=== PATIENT | female | born 1935 | race Caucasian/White ===

== ENCOUNTER 2024-04-29 10:00 | Emergency (ER) | payer OTHER ==
--- OUTSIDE RECORDS SUMMARY | 2024-04-29 10:03 | XMS REPORT | Continuity of Care Document ---
Author Name Unknown Address [address] [place] [address] [address] [id number] [facility] thconnect Address [address] [facility] [address] [place] [address] Care Team Providers Care Cycle Liaison Name Role Phone Andrzej Darby Attending Clinician Unavailable ANNAMARIA_Anthony Attending Clinician Unavaila vladislav YIN_Evelia Attending Clinician Unavail able Andrzej Darby Admitting Clinician Unavailable ANNAMARIA_Anthony Admitting Clinician Unavaila vladislav YIN_Evelia Admitting Clinician Unavail able Payers Payer Name Policy Type Policy Number Effective Date Expirati on Date Source [place]IC[place]: [place] [id number] 2000 00:00:00 [employer] - PLAN F (MEDICARE SUPPLEMENT) [id number] 2017 00:00:00 Problems Condition Name Condition Details Condition Category Status Onset Date Resolution Date Last Treatment Date Treating Clinician Comments Source Knee joint prosthesis present Knee Joint Prosthesis Present Problem Active 03-23 00:00: 00 [facility] Pain of bilateral knee regions Pain of Bilateral Knee Regions Problem Active 03-23 00:00: 00 [facility] Osteoarthr itis of right knee joint Osteoarthr itis of Right Knee Joint Problem Active 03-23 00:00: 00 [facility] Pain of left knee joint Pain of Left Knee Joint Problem Active 2022-11 00:00: 00 [facility] 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 Problem Active 2022-11 0-26 00:00: 00 [facility] Allergies, Adverse Reactions, Alerts Allergy Name Allergy Type Status Severity Reaction(s) Onset Date Inactive Date Treating Clinician Comments Source No Known Allergie s DA Active U 6-06 00:00: 00 [facility] No Known Allergie s DA Active U 04-02 00:00: 00 [facility] No Known Allergie s DA Active U 2022-11 00:00: 00 [facility] No Known Allergie s DA Active U 2022-11 00:00: 00 [facility] Social History Smoking Status Start Date Stop Date Source Never Smoker [facility] Medications Ordered Medication Name Filled Medication Name Start Date Stop Date Current Medication? Ordering Clinician Indication Dosage Frequency Signature (SIG) Comments Components Source Hibiclens 4 % topical liquid Apply 1 application every day by topical route for 5 days. Hibiclens 4 % topical liquid Apply 1 application every day by topical route for 5 days. No 1applic ation(s ) Q1D Hibiclens 4 % topical liquid Apply 1 applicatio n every day by topical route for 5 days. [facility] ondansetron HCl 4 mg tablet TAKE 1 TABLET BY MOUTH TWICE DAILY NEEDED FOR 14 DAYS ondansetron HCl 4 mg tablet TAKE 1 TABLET BY MOUTH TWICE DAILY NEEDED FOR 14 DAYS No ondansetro n HCl 4 mg tablet TAKE 1 TABLET BY MOUTH TWICE DAILY NEEDED FOR 14 DAYS [facility] doxycycline hyclate 100 mg tablet Take 1 tablet twice a day by oral route as directed for 7 days. doxycycline hyclate 100 mg tablet Take 1 tablet twice a day by oral route as directed for 7 days. No 1 BID doxycyclin e hyclate 100 mg tablet Take 1 tablet twice a day by oral route as directed for 7 days. [facility] acetaminoph en 300 mg-codeine 30 mg tablet TAKE 1 TABLET BY MOUTH EVERY 6 HOURS NEEDED acetaminoph en 300 mg-codeine 30 mg tablet TAKE 1 TABLET BY MOUTH EVERY 6 HOURS NEEDED No acetaminop hen 300 mg-codeine 30 mg tablet TAKE 1 TABLET BY MOUTH EVERY 6 HOURS NEEDED [facility] aspirin 81 mg tablet,skyler yed release TAKE 1 TABLET BY MOUTH TWICE DAILY FOR 42 DAYS aspirin 81 mg tablet,skyler yed release TAKE 1 TABLET BY MOUTH TWICE DAILY FOR 42 DAYS No aspirin 81 mg tablet,del ayed release TAKE 1 TABLET BY MOUTH TWICE DAILY FOR 42 DAYS [facility] diclofenac sodium 75 mg tablet,skyler yed release TAKE 1 TABLET BY MOUTH TWICE DAILY AFTER FINISHING 5 DAYS OF KETOROLAC diclofenac sodium 75 mg tablet,skyler yed release TAKE 1 TABLET BY MOUTH TWICE DAILY AFTER FINISHING 5 DAYS OF KETOROLAC No diclofenac sodium 75 mg tablet,del ayed release TAKE 1 TABLET BY MOUTH TWICE DAILY AFTER FINISHING 5 DAYS OF KETOROLAC [facility] doxycycline hyclate 100 mg capsule TAKE 1 CAPSULE BY MOUTH TWICE DAILY FOR 7 DAYS doxycycline hyclate 100 mg capsule TAKE 1 CAPSULE BY MOUTH TWICE DAILY FOR 7 DAYS No doxycyclin e hyclate 100 mg capsule TAKE 1 CAPSULE BY MOUTH TWICE DAILY FOR 7 DAYS [facility] hydrocodone 5 mg-acetamin ophen 325 mg tablet TAKE 1 TABLET BY MOUTH EVERY 8 HOURS NEEDED hydrocodone 5 mg-acetamin ophen 325 mg tablet TAKE 1 TABLET BY MOUTH EVERY 8 HOURS NEEDED No hydrocodon e 5 mg-acetami nophen 325 mg tablet TAKE 1 TABLET BY MOUTH EVERY 8 HOURS NEEDED [facility] ketorolac 10 mg tablet TAKE 1 TABLET BY MOUTH EVERY 8 HOURS FOR 5 DAYS ketorolac 10 mg tablet TAKE 1 TABLET BY MOUTH EVERY 8 HOURS FOR 5 DAYS No ketorolac 10 mg tablet TAKE 1 TABLET BY MOUTH EVERY 8 HOURS FOR 5 DAYS [facility] lorazepam 0.5 mg tablet TAKE 1 TABLET BY MOUTH EVERY 6 TO 8 HOURS NEEDED lorazepam 0.5 mg tablet TAKE 1 TABLET BY MOUTH EVERY 6 TO 8 HOURS NEEDED No lorazepam 0.5 mg tablet TAKE 1 TABLET BY MOUTH EVERY 6 TO 8 HOURS NEEDED [facility] methylpredn isolone 4 mg tablets in a dose pack TAKE BY MOUTH DIRECTED ON INSIDE OF PACKAGE methylpredn isolone 4 mg tablets in a dose pack TAKE BY MOUTH DIRECTED ON INSIDE OF PACKAGE No methylpred nisolone 4 mg tablets in a dose pack TAKE BY MOUTH DIRECTED ON INSIDE OF PACKAGE [facility] mupirocin 2 % topical ointment APPLY A SMALL AMOUNT TO EACH NOSTRIL DAILY FOR 5 DAYS BEFORE SURGERY mupirocin 2 % topical ointment APPLY A SMALL AMOUNT TO EACH NOSTRIL DAILY FOR 5 DAYS BEFORE SURGERY No mupirocin 2 % topical ointment APPLY A SMALL AMOUNT TO EACH NOSTRIL DAILY FOR 5 DAYS BEFORE SURGERY [facility] pantoprazol e 40 mg tablet,skyler yed release TAKE 1 TABLET BY MOUTH ONCE DAILY pantoprazol e 40 mg tablet,skyler yed release TAKE 1 TABLET BY MOUTH ONCE DAILY No pantoprazo le 40 mg tablet,del ayed release TAKE 1 TABLET BY MOUTH ONCE DAILY [facility] prednisone 10 mg tablet TAKE 1 TABLET BY MOUTH ONCE DAILY prednisone 10 mg tablet TAKE 1 TABLET BY MOUTH ONCE DAILY No prednisone 10 mg tablet TAKE 1 TABLET BY MOUTH ONCE DAILY [facility] tizanidine 4 mg tablet TAKE 1 TABLET BY MOUTH EVERY 8 HOURS NEEDED FOR 14 DAYS tizanidine 4 mg tablet TAKE 1 TABLET BY MOUTH EVERY 8 HOURS NEEDED FOR 14 DAYS No tizanidine 4 mg tablet TAKE 1 TABLET BY MOUTH EVERY 8 HOURS NEEDED FOR 14 DAYS [facility] tramadol 50 mg tablet TAKE 1 TABLET BY MOUTH EVERY 6 HOURS NEEDED FOR PAIN FOR 7 DAYS tramadol 50 mg tablet TAKE 1 TABLET BY MOUTH EVERY 6 HOURS NEEDED FOR PAIN FOR 7 DAYS No tramadol 50 mg tablet TAKE 1 TABLET BY MOUTH EVERY 6 HOURS NEEDED FOR PAIN FOR 7 DAYS [facility] Vital Signs Vital Name Observation Time Observation Value Comments S ource Height 2024-04-22 00:00:00 62 [in_i] [facility] Body Weight 2024-04-13 00:00:00 132 [lb_av] [facility] Height 2024-04-13 00:00:00 62 [in_i] [facility] BMI (Body Mass Index) 2024-04-13 00:00:00 24.1 kg/m2 [facility] Height 2024-03-23 00:00:00 62 [in_i] [facility] Body Weight 2024-03-23 00:00:00 132 [lb_av] [facility] BMI (Body Mass Index) 2024-03-23 00:00:00 24.1 kg/m2 [facility] Body Weight 2023-11-24 00:00:00 132 [lb_av] [facility] BMI (Body Mass Index) 2023-11-24 00:00:00 24.1 kg/m2 [facility] Height 2023-11-24 00:00:00 62 [in_i] [facility] Body Weight 2023-10-14 00:00:00 132 [lb_av] [facility] Height 2023-10-14 00:00:00 62 [in_i] [facility] BMI (Body Mass Index) 2023-10-14 00:00:00 24.1 kg/m2 [facility] Procedures Procedure Date / Time Performed Performing Clinician Source XR, knee, 1 or 2 view 2024-03-23 00:00:00 [facility] electrocardiogram, routine ECG, 12 leads min 2024-03-23 00:00:00 [facility] XR, knee, 1 or 2 view 2023-11-24 00:00:00 [facility] Total Replacement of Left Knee Joint 2023-09-30 00:00:00 [facility] Eye Surgery [facility] Gallbladder Surgery [facility] Encounters Start Date/Time End Date/Time Encounter Type Admission Type Attending Clinicians Care Facility Care Department Encounter ID Source 2024-04-22 00:00:00 2024-04-22 00:00:00 Torrey Mcnamara, [employer] GRINDER: [address] [place] [address] , Ph. [phone] [place] [facility] [id number] [facility] 2024-04-13 00:00:00 2024-04-13 00:00:00 Andrzej Darby MD: [address] [place], [place] [address] , Ph. [phone] [place] [facility] [place] [id number] [facility] 2024-04-08 06:28:00 2024-04-09 14:52:00 Inpatient EL Andrzej Darby [facility] SURG [id number] [facility] 2024-04-08 14:01:00 2024-04-08 14:01:00 Outpatient Andrzej Darby HCACL LABO [id number] 04 [facility] 2024-03-23 00:00:00 2024-03-23 00:00:00 Andrzej Darby MD: [address] [place] [address] , Ph. [phone] [place] [facility] [place] [id number] [facility] 2024-01-20 00:00:00 2024-01-20 00:00:00 Outpatient [facility] [id number] [facility] 2024-01-20 00:00:00 2024-01-20 00:00:00 Andrzej Darby MD: [address] [place], [place] [address] , Ph. [phone] [place] [facility] [place] [id number] [facility] 2023-12-26 00:00:00 2023-12-26 00:00:00 Outpatient [facility] [id number] [facility] 2023-11-24 00:00:00 2023-11-24 00:00:00 Andrzej Darby MD: [address] [place] [address] , Ph. [phone] [place] [facility] [place] [id number] [facility] 2023-10-14 00:00:00 2023-10-14 00:00:00 Andrzej Darby MD: [address] [place] [address] , Ph. [phone] AOS[facility] [place] [facility] [place] [id number] [facility] 2023-09-30 08:45:00 2023-10-01 11:00:00 Inpatient Andrzej Vargas [facility] SURG [id number] [facility] 2023-09-30 15:57:00 2023-09-30 15:57:00 [facility] [id number] [facility] 2023-09-24 00:00:00 2023-09-24 00:00:00 Outpatient FOG_Cecil Malone AOSM AOSM [id number] [facility] 2023-09-24 00:00:00 2023-09-24 00:00:00 Outpatient FOG_Cecil Malone AOSM AOSM [id number] [facility] 2023-09-24 00:00:00 2023-09-24 00:00:00 Outpatient FOG_Cecil Malone AOSM AOSM [id number] [facility] 2023-09-24 00:00:00 2023-09-24 00:00:00 Outpatient FOG_Cecil Malone AOSM AOSM [id number] [facility] 2023-08-28 00:00:00 2023-08-28 00:00:00 Outpatient FOG_Gene Gardner AOSM AOSM [id number] [facility] 2023-08-21 00:00:00 2023-08-21 00:00:00 Outpatient FOG_Gene Gardner AOSM AOSM [id number] [facility] 2023-08-21 00:00:00 2023-08-21 00:00:00 Outpatient ANNAMARIA_Tami_ Abdiel_ [facility] [id number] [facility] Results Test Description Test Time Test Comments Results Result Co mments Source SPECIMEN COMMENT: POD #1Hemoglobin and Hematocrit panel - [id number] 05:31:00* Test Item Value Reference Range Interpretation Comme nts hemoglobin (test code = hemoglobin) 9.8 g/dL 12-16 L hematocrit (test code = hematocrit) 28.8 % 37-47 L performing lab: (test code = performing lab:) [facility]- XR KNEE 1 OR 2 V [id number] 11:20:00 [facility] 1935 Sex: F Patient Name: UZAIR ALFRED Unit No: [id number] EXAMS: CPT CODE: [id number] XR KNEE 1 OR 2 [place] LT [address] IMAGES PROVIDED: 2 FINDINGS: Postoperative changes from left total knee arthoplasty demonstrated without evidence of immediate complication. No acute fracture is visualized. IMPRESSION: Postoperativeexam as above. at 1120 Reported and signed by: Jan Rader M.D. CC: Andrzej Darby MD Technologist: Jason Hdez R.T. Transcribed D/ (1120) [facility] NAME: UZAIR ALFRED [address] [facility] PHYS: Andrzej Watkins MD : 1935 AGE: 88 SEX: F [place], [place] [address] LOC: Y.322 A PHONE #: [phone] EXAM DATE: 09/30/2023 STATUS: DIS IN FAX #: [phone] RAD #: D/C DT 10/01/2023 PAGE 1 Signed Report Patient Name: UZAIR ALFRED Unit No: [id number] EXAMS: CPT CODE: [id number] XR KNEE 1 [place] [address] [place] [address] (Continued) Orig Print D/T: S: 10/01/2023 (1123) [facility] NAME: UZAIR ALFRED [address] [facility] PHYS: Andrzej Watkins MD : 1935 AGE: 88 SEX: F [place], [place] [address] LOC: Y.322 A PHONE #: [phone] EXAM DATE: 09/30/2023 STATUS: DIS IN FAX #: [phone] RAD #: D/C DT 10/01/2023 PAGE 2 Signed ReportBASIC METABOLIC [id number] 06:47:00* Test Item Value Reference Range Interpretation Comme nts SODIUM (test code = NA) 138 mmol/L 136-145 N POTASSIUM (test code = K) 4.8 mmol/L 3.5-5.1 N CHLORIDE (test code = CL) 102.0 mmol/L 98-107 N CARBON DIOXIDE (test code = CO2) 24.9 mmol/L 21-32 N GLUCOSE (test code = GLU) 130 mg/dL 74-106 H BLOOD UREA NITROGEN (test code = BUN) 12 mg/dL 7-18 N GLOMERULAR FILTRATION RATE (test code = GFR) 64.0 >60 The Glomerular Filtration Rate is a calculated parameterbased on serum Creatinine, patient age and sex. GFR valuesless than 60 mL/min/1.73 square meters are indicative ofChronic Kidney Disease. Values less than 15 mL/min/1.73square meters indicate Kidney failure. The calculation forGFR is based on the CKD-EPI (2020) calculation. This formulais race indifferent and is the recommended formula for GFRby the National Kidney Foundation for Adults.The GFR will not calculate if the sex is unknown or if thepatient's age is <18 years. CREATININE (test code = CREAT) 0.87 mg/dL 0.55-1.02 N CALCIUM (test code = CA) 8.9 mg/dL 8.5-10.1 N SPECIMEN COMMENT: POD #1HGB [id number] 05:52:00* Test Item Value Reference Range Interpretation Comme nts HEMOGLOBIN (test code = HGB) 10.7 g/dL 12-16 L HEMATOCRIT (test code = HCT) 32.4 % 37-47 L SPECIMEN COMMENT: POD #1Hemoglobin and Hematocrit panel - [id number] 04:40:00* Test Item Value Reference Range Interpretation Comme nts hemoglobin (test code = hemoglobin) 10.7 g/dL 12-16 L hematocrit (test code = hematocrit) 32.4 % 37-47 L performing lab: (test code = performing lab:) [facility] [id number] 04:40:00* Test Item Value Reference Range Interpretation Comme nts sodium (test code = sodium) 138 mmol/L 136-145 potassium (test code = potassium) 4.8 mmol/L 3.5-5.1 chloride (test code = chloride) 102.0 mmol/L 98-107 carbon dioxide (test code = carbon dioxide) 24.9 mmol/L 21-32 glucose (test code = glucose) 130 mg/dL 74-106 H blood urea nitrogen (test co de = blood urea nitrogen) 12 mg/dL 7-18 glomerular filtration rate ( test code = glomerular filtration rate) 64.0 >60 creatinine (test code = creatinine) 0.87 mg/dL 0.55-1.02 calcium (test code = calcium) 8.9 mg/dL 8.5-10.1 performing lab: (test code = performing lab:) [facility] Notes Date/Time Note Provider Source 2024-04-09 08:03:00 [id number] zvd/3yvS3Bc5GyqI3g0cC4HQVjC9748-21-77I23:03:[address] [facility] ([facility])Discharge SummaryREPORT#:[id number] REPORT STATUS: SignedREPORT INITIALIZATION DATE:04/09/24 TIME: 802 PATIENT: UZAIR ALFRED UNIT #: [id number]#: [id number] ROOM/BED: Y.513-ADOB: [birth year] AGE: 89 SEX: F ATTEND: Andrzej Darby MDADM AUTHOR: Torrey Mcnamara APRNREPT SERVICE DT/TIME: 04/09/24 08* ALL edits or amendments must be made on the electronic/computer document * General InformationDischarge date: 04/09/24Discharge diagnosis:Right knee osteoarthritisHospital course:Discharge Diagnosis: Right Knee Degenerative Disease Procedure: Right Knee Arthroplasty Hospital Course and Findings The patient underwent the procedure without incident. Findings were significantfor degenerative disease of the knee. The patient was hemodynamically and medically monitored during the postoperative period. Anticoagulation was instituted for postoperative DVT prophylaxis. The patient was progressively able to tolerate PO pain medications and the appropriate diet. Physical therapywas instituted, with a progressive ability to ambulate and perform exercises. The patient was eventually deemed stable and safe for discharge. Despite factors which projected a longer hospital stay, the patient fulfilled criteria for earlier than expected discharge, including control of pain, early mobilization with therapy, and a stable hemodynamic status. At discharge, the patient was comfortable, with a controlled pain level. There were no chest or abdominal symptoms present. Discharge physical examination demonstrated stable vital signs and no acute distress. The patient had an intact wound with no significant drainage, and no calf tenderness and a negativeHoman's sign bilaterally. There were no neurologic or vascular deficits or changes from the preoperative state. Disposition: Discharged to home Discharge Condition: Stable Instructions: Instruction sheet given to patient Activity: Ambulate with assistance, with weight-bearing as instructed in the hospital. Diet: As per preoperatively Prescriptions 1. Pain Medications: As per discharge prescription, with progressive weaning as pain decreases 2. Anticoagulation: As per discharge prescription, or PreOp anticoagulant, as discussed with patient3. Physical Therapy: Will undergo PT for gait training, mobilization, drenf-up-bfjuqb, and strengthening. Patient was informed that they need to arrange for therapy as quickly as possible. The importance of early advancement of munwq-cm-pbcxfm withhome exercises, and physical therapy was stressed to the patient. Follow-up Appointment: Patient instructed to arrange appointment for an office visit in 2 weeks Med Rec Med RecDischarge meds:Continue taking these medications:PANTOPRAZOLE DR (PROTONIX) 40 MG TAB.DR 40 MILLIGRAM ORAL DAILY. CYANOCOBALAMIN (VITAMIN B-12) 1,000 MCG TAB 1,000 MICROGRAM ORAL DAILY. Discharge Instructions PCP)( Discharge to: Home/Self Care Discharge InstructionsAdditional Discharge Routines: Attending Follow-Up, Wound/Dressing Care)( Diet: Resume Home Diet/Feeds, Regular)( Activity: As Tolerated, Do not Submerge Incision)( Wound/dressing care: Do not submerge incision, Leave dressing in place, OK toshower tomorrow Follow-up AppointmentsAttending Physician: Attending Physician: Andrzej Darby MD Attending physician follow up timeframe: In 2-3 weeks Special instructions:Aspirin twice a day to prevent blood clot Leave LISETTE wrap on for 72 hours. Leave glued dressing in place until follow up. Ok to shower with glued dressing. at 0804 at 0822 RPT #:[id number] OF REPORT DSDischarge [id number]:03:00Y.[id number] ailable for patient [id number]:04:43 [facility] 2024-[facility] 18:23:00 [id number]zwP 3qkcvzcIpr8bJjKOs7v+pqt6d+y9706-69-45Q85:23:[address] [facility] ([facility])Clinical NoteREPORT#:[id number] REPORT STATUS: SignedREPORT INITIALIZATION DATE:04/08/24 TIME: 1822 PATIENT: UZAIR ALFRED UNIT #: [id number]#: [id number] ROOM/BED: Y.513-ADOB: [birth year] AGE: 89 SEX: F ATTEND: Andrzej Darby MDADM AUTHOR: Chandler De Guzman MDREPT SERVICE DT/TIME: 04/08/24 7083* ALL edits or amendments must be made on the electronic/computer document * Clinical NoteNote:[facility] Chandler Knutson MD(cell text [phone])Internal Medicine Consult at request of : Dr. Andrzej Darby. Chief Complaint: .right knee pain HPI: 89 yo F is now s/p Right Total Knee Arthroplasty (TKA) by Dr. Darby. Ms. Alfred relates years of progressive right knee pain (recently severe), worsewith activity, and popping crunchy with restricted motion at times in quality.She has failed conservative management.Comorbidities: see below. PmHx: .OsteoArthritis, GERD, ALLERGY: Allergies:No Known Allergies (Coded, 04/08/24) Home Medications: Home Medications:PANTOPRAZOLE DR (PROTONIX) 40 MG PO DAILY CYANOCOBALAMIN (VITAMIN B-12) 1,000 MCG PO DAILY SgHx: . Cholecystectomy, left knee arthroplasty, eye surgery SHx: Tob: none FHx: .No significant hx of DVT/PE.Alcohol: none Drugs: none Lives: with others ..Vitals:Vital Signs: Date Time Temp Pulse Resp B/P B/P Pulse O2 O2 Flow FiO2 Mean Ox Delivery Rate 04/08 1551 97.2 72 16 151/67 95.2 100 Nasal cannula /06 1500 100 Nasal 1 cannula 04/08 1159 97.3 84 16 135/66 89.0 96 Nasal cannula 06/06 1115 Nasal 3 100 cannula /06 1056 97.5 91 15 132/66 88.0 95 Nasal cannula 06/06 1045 87 16 131/63 100 Nasal 3 cannula 06/06 1041 80 20 192/91 96 Simple 6 mask 06/06 1033 85 16 133/55 98 Nasal 3 cannula 06/06 1032 85 18 137/56 97 Nasal 3 cannula 06/06 1019 80 17 155/72 98 Nasal 3 cannula 06/06 1000 68 17 188/85 98 Nasal 3 cannula 06/06 0945 71 16 188/86 99 Nasal 3 cannula 06/06 0939 71 17 203/95 98 Nasal 3 cannula 06/06 0915 95 17 199/96 99 Nasal 3 cannula 04/08 0901 97.8 86 16 146/69 100 Simple 10 mask 04/08 0630 97.6 98 18 194/92 96 Room air Gen: Alert, in mild discomfort.EYE: Nl lids conjunctiva.ENT: Nl ears Nose, nl lips,. Neck: Supple, nl thyroid, No masses.CV: Regular Rate Rhythm, no heave or significant murmur. Edema- none RESP: Clear to Auscultation, normal Respiratory effort.ABD: Soft, NonDistended,.LYM: No significant cervical lymphadenopathy.MS: No sign of compartment syndrome, Knee is wrapped, drain in placeNEURO: Nonfocal, grossly normal sensation of LE, +Ankle DF/PF..Preop Labs(04/06/24): CBC:. Hgb 13, Plt 311, CHEM: Na 138, K 4.9, Cr0.81 (Egfr69 %), A1C 6.3Ekg: Normal sinus rhythm.(medium to high risk of complications or morbidity) (major surgery) (IV sedative, meds).Assessment Plan1.) Anemia of Acute Blood Loss- .will recheck tomorrow. 2.) S/p Right TKA- .acute multi-modal pain control and followup. Anticoagulationas per .3.) OsteoArthritis GERD Anxiety- .continue on Rx.. Chandler Knutson M.D. Thanks!..... G9903 - Patient screened for tobacco use AND identified as a tobacco non-dasf1552M - ACP disscussion - default code status while at [facility]. G8420 BMI is documented as within normal parameters (18-25). at 2300 RPT #:[id number] OF REPORT CLClinical [id number]:23:00Y.[id number] able for patient evywUKNYVUBFVTXVNX9145-24-56R16:01:15 [facility] 2024-04-08 08:32:00 [id number] [id number] VaglZdWd8u+c2iPR3kZolUln9AU3794-42-20I04:32:44574 6-0010 [facility] [place] [place] [address] PATIENT NAME: UZAIR ALFRED ADMIT DATE: 04/08/24ACCOUNT NO: [id number] ROOM NO: Y.998 AGE: 89 REPORT TYPE: OPERATIVE REPORT SEX: F ADMITTING PHYSICIAN:Andrzej Darby MD ATTENDING PHYSICIAN:Andrzej Darby MD OPERATION DATE: 04/08/2024 PREOPERATIVE DIAGNOSIS: Right knee osteoarthropathy. POSTOPERATIVE DIAGNOSIS: Right knee osteoarthropathy, M17.11. OPERATIVE PROCEDURES PERFORMED:1. Computer-assisted imageless right total knee arthroplasty, 94150.285. IMPLANTS UTILIZED: DePuy Attune fixed bearing knee, size 4 narrow right posterior stabilized femur, size 4 fixed bearing tibial tray, 4 x 6 mm posteriorcruciate sacrificing fixed bearing tibial insert, 35 mm oval patella; all components cemented. SURGEON: Andrzej Darby M.D. SUPERVISING FLOORPERSON: Terence Adams, FERMIN/LSA ANESTHESIA: General. TOURNIQUET TIME: 24 minutes. ESTIMATED BLOOD LOSS: Less than 25 mL. OPERATIVE FINDINGS: As above. SURGICAL SPECIMENS SENT: None. CLINICAL INDICATIONS: Ms. Alfred is a very pleasant 89-year-old female from [place], [place], who has been having severe and progressive pain involving her right knee. Her pain is occurring on a daily basis. Her pain has been refractory to nonoperative intervention. Due to her progressive disability and lack of response to nonoperative treatment, she is admitted for computer-assisted imageless right total knee arthroplasty. OPERATIVE NARRATIVE:1. COMPUTER-ASSISTED IMAGELESS RIGHT TOTAL KNEE ARTHROPLASTY, 94291.2. 09686. Ms. Alfred was brought to the operative suite at which time she was placed in supine position on the OR table. Routine monitors were established. General PATIENT NAME: UZAIR ALFRED anesthesia was delivered. After satisfactory induction of general anesthesia, atourniquet was applied to the patient's right lower extremity per Mr. Adams and the right leg was circumferentially prepped and draped in usual sterile fashion per Mr. Adams. The leg was then elevated, exsanguinated, tourniquet insufflated to 300 mmHg. The knee was flexed to 100 degrees. Anterior midline incision was performed. Medial parapatellar arthrotomy was performed. Patella was everted laterally. Severe grade IV changes in all 3 compartments. Hypertrophic osteophytes were resected. Ligament balancing was achieved. Medial and lateral menisci were excised. Anterior and posterior cruciate ligaments were then resected. A centramedullary pin was then placed inthe anatomic center of the distal femur and the guide was pinned in 0 degrees ofvarus valgus angulation on 3 degrees of flexion. The distal 10 mm of the femur was then resected. The guide was removed. The distal femur was appropriately sized and a size 4 cutting block was used to create the anterior followed by posterior followed by chamfer cuts. Appropriate osteotomy guide was then placedacross the distal femur and the femoral notch was resected. The proximal tibia was translated anteriorly. Utilizing extramedullary instrumentation, the proximal tibia was resected perpendicular to its mechanical axis resecting 10 mmfrom the unaffected lateral tibial plateau. The proximal tibia was appropriately sized and a size 4 baseplate was noted to provide optimal coverage. Proximal tibia was appropriately prepped. The patella was then resected so as to ensure mormon was of normal height with prosthesis in place. Flexion as well as extension gaps were checked and noted to be equal. Trial components were placed into the joint. Optimal stability was noted utilizing a 6 mm insert. A 0 degrees of gravity extension with 135 degrees of gravity flexion were present. Patellofemoral tracking was within normal limits. There was no varus or valgus instability noted. The knee was stable in both flexion as well as extension. The trial components were removed. Bony surfaces prepared for cement implantation using pulsatile lavage irrigation. The tibial tray was cemented into place followed by cement implantation of femoral component. Polyethylene insert was then placed on the tibial tray and the knee was placed in full extension. Patellar component was cemented. Tourniquet deflated. Meticulous hemostasis was achieved with Bovie electrocautery. Copious antibiotic lavage was performed. Medium Hemovac drain was then placed deep to the extensor mechanism and the knee was placed into 70 degrees of flexion. Arthrotomy was closed in watertight fashion with 2.0 Quill suture. Skin closure with 0 Vicryl followed by 2-0 Vicryl, followed by Ethicon Prineo mesh as per Mr. Adams. Intraarticular anesthetic injection was performed by Mr. Adams. Sterile dressing was applied by Mr. Adams. The patient was then extubated, taken to recovery room awake and alert without any anesthetic or operative complications. At the end of the case, sponge and needle counts were correct x2. During the procedure, Mr. Adams was invaluable in positioning the patient along with prepping and draping of extremity. He was also responsible for providing surgical exposure throughout the procedure in addition to closure of the postoperative incisions, intra-articular anesthetic injection and application of postoperative dressing. Utilizing the OrthAlign guidance system,we can dramatically reduce intraoperative and postoperative blood loss due to lack necessity of an intramedullary tunnel in distal femur. Also, several surgeries have shown that the accuracy of distal femoral resection is greatly enhanced over standard intramedullary instrumentation. PATIENT NAME: UZAIR ALFRED Dictated By: Andrzej Darby MD Date Dictated: 04/08/2024 08:32:54Date Transcribed: 04/08/2024 09:00:57RLB/VSRJob #: [id number] ID: [id number] by Andrzej Darby MD On 04/08/2024 10:19:49 AM at 1019 PATIENT NAME: UZAIR ALFRED sxgpra9104-79-63W98:00:00Y.[id number] lable for patient newrIYYQWQMTZWQNVZ1328-26-95L10:20:24 [facility] 06:16:00 [id number] e62xMbJPkTfIVBWYmPatngZILAJzU olaOjkeBqR+iKTMEFpzikzvviL75015-28-27Q61:16:[address] [facility] ([facility])Brief Op NoteREPORT#:[id number] REPORT STATUS: SignedREPORT INITIALIZATION DATE:04/08/24 TIME: 06 PATIENT: UZAIR ALFRED UNIT #: [id number]#: [id number] ROOM/BED:: 02/25/35 AGE: 89 SEX: F ATTEND: Andrzej Darby MDADM AUTHOR: Andrzej Darby [facility] SERV[facility] DT/TIME: 04/08/24 0616* ALL edits or amendments must be made on the electronic/computer document * Op/Inv Proc Note - BriefPre-procedure diagnosis:Right knee osteoarthritisPost-procedure diagnosis: same as pre procedure dxProcedures performed:Right total knee arthroplasty Primary Surgeon:Dr Andrzej Salastant(s): Torrey Mcnamara DNPFindings:See full dictation Complications: noneEstimated blood loss in ml's: 25 ccSpecimens removed/altered: none at 0617 [facility] #:[id number] OF REPORT OPOperative ooezei0439-79-94K80:16:00Y.IGFJ46240769-4400RLTow ilable for patient ajxkOYXJHAXFUTRZNF2762-19-17M31:17:44 [facility] 2024-04-06 12:55:00 [id number] Zq4v3dmxLxvkadwygZuBORmhmzh+Y JLfszLivBQAW3o2qWiMpe2GT22j1542-28-59G36:55:61241 4-0068 [place] [address] PATIENT NAME: UZAIR ALFRED ADMIT DATE: ACCOUNT NO: [id number] ROOM NO: AGE: 89 REPORT TYPE: HISTORY AND PHYSICAL SEX: F ADMITTING PHYSICIAN: ATTENDING PHYSICIAN:Andrzej Darby MD ADMISSION DATE: 04/08/2024 00:00:00 ADMITTING DIAGNOSIS: Right knee osteoarthritis, M17.11. HISTORY OF PRESENT ILLNESS: Mr. Alfred is an 89-year-old female who is well known to me from a previous left total knee arthroplasty. She has done exceedingly well with her left knee. Unfortunately, she is having severe pain with the right knee. The pain is occurring on a daily basis pain and greatly affects her quality of her life. Her pain is not improved despite extensive nonoperative treatment. Due to her severe disability and lack of response to nonoperative intervention, Mr. Alfred is admitted for right total knee arthroplasty. PAST MEDICAL HISTORY: Anxiety, arthritis, reflux. PAST SURGICAL HISTORY: Eye surgery, cholecystectomy, left total knee arthroplasty. FAMILY HISTORY: Carcinoma and cerebrovascular disease. SOCIAL HISTORY: She does not smoke nor does she drink. ALLERGIES: NO ALLERGIES ARE LISTED. MEDICATIONS: Lorazepam, pantoprazole. REVIEW OF SYSTEMS: Negative. PHYSICAL EXAMINATION:VITAL SIGNS: A 5 feet 2 inches tall, 59.8 kg.ORTHOPEDIC EVALUATION: Leg lengths are equal. Full painless motion of both hips. Examination of the right knee reveals an antalgic gait. She has a fixed varus deformity. She has painful passive motion. She has 5 to 100 degrees of motion. Her distal neurovascular status is intact. RADIOGRAPHIC EVALUATION: Varus alignment with severe tricompartmental osteoarthritis. ASSESSMENT: Right knee pain secondary to severe osteoarthropathy. SURGICAL PLAN: Right total knee arthroplasty. I have gone over at length with the patient the associated risks involved with this procedure. She understands PATIENT NAME: UZAIR ALFRED that these will include, but are not limited to bleeding, infection, neurovascular damage, persistent pain, loss of motion, need for further operative intervention, leg length inequality, painful scar, persistent limp, loss of motion, loosening of the prosthesis requiring possible revision, deep vein thrombi leading to pulmonary emboli along with complications secondary to anesthesia. Furthermore, she understands that there are no guarantees or warranties that she will be pain free as a result of this procedure. She understands that she will receive a fixed bearing posterior cruciate sacrificingcemented total knee arthroplasty. She accepts these risks and gives her informed consent to proceed. Dictated By: Andrzej Darby MD Date Dictated: 04/06/2024 12:55:51Date Transcribed: 04/06/2024 14:00:55ANTHONY/BETSY/Felipa #: [id number] ID: [id number] by Andrzej Darby MD On 04/06/2024 06:33:43 PM at 0633 PATIENT NAME: UZAIR ALFRED and physical mbsoalapjva9747-79-83W48:00:00Y.[id number] VAvailable for patient taocOTLPCDJADAWKMB8555-71-18G83:34:13 [facility] 2023-10-01 10:01:00 [id number] wtNyQYWqE4u3U5KNO67gEDZISekQh 1LaXLp5piNdNO2314VYScbzh+TK1091-58-72F57:01:[address] [facility] ([facility])Clinical NoteREPORT#:[id number] REPORT STATUS: SignedREPORT INITIALIZATION DATE:10/01/23 TIME: 100 PATIENT: UZAIR ALFRED UNIT #: [id number]#: [id number] [facility]: [facility] AGE: 88 SEX: F ATTEND: Andrzej Darby [facility] AUTHOR: Chandler De Guzman MDREPT SERVICE DT/TIME: 10/01/23 1001* ALL edits or amendments must be made on the electronic/computer document * Clinical NoteNote:[facility] Chandler Knutson M.D. (cell text [phone]) Assessment/Plan1.) Anemia of acute blood loss- .Hgb 10.7, asymptomatic.2.) S/p Left Total Knee Arthroplasty .acute multi-modal pain control and followup. Anticoagulation as per Dr. Darby.3.) OsteoArthritis Gerd- .continue on Rx.* OK for DISCHARGE per Internal Medicine. Prior Events/Overnight: Uneventful.Chief Complaint: No significant complaints. ObjectiveVital Signs: Date Time Temp Pulse Resp B/P B/P Pulse O2 O2 Flow FiO2 Mean Ox Delivery Rate 10/01 0820 98 Room air 21 10/01 0707 97.7 87 14 158/78 104.5 96 Room air 10/01 0429 97.7 81 18 165/72 102.7 97 09/30 2214 97.9 89 18 154/71 98.7 97 09/30 2135 96 Nasal 1 24 cannula 09/30 1932 97.9 90 18 156/70 98.5 96 09/30 1623 97 Room air 09/30 1518 97.2 85 14 124/63 0.0 99 Nasal cannula 09/30 1445 97.2 83 14 126/55 78.5 93 Nasal cannula 09/30 1415 86 24 145/58 98 Nasal 3 cannula 09/30 1400 85 16 139/58 100 Nasal 3 cannula 09/30 1352 Nasal 3 cannula 09/30 1348 Simple 6 mask 09/30 1345 81 12 135/63 100 Nasal 3 cannula 09/30 1330 77 21 207/97 100 Nasal 3 cannula 09/30 1315 84 14 196/82 100 Nasal 3 cannula 09/30 1304 97.2 93 19 207/96 100 Simple 6 mask Gen: Alert, oriented, in mild discomfort Neck: No Masses, No Thyromegaly-CV: Regular Rate Rhythm / Edema- no significant Resp: Clear To Ascultation / Normal Respiratory EffortABD: NonTender / NonDistended MS/Skin: No sign of compartment syndrome / +ankle DF/PFOther: Labs/X-ray: Laboratory Tests: 10/010 Chemistry Sodium (136 - 145 mmol/L) 138 Potassium (3.5 - 5.1 mmol/L) 4.8 Chloride (98 - 107 mmol/L) 102.0 Carbon Dioxide (21 - 32 mmol/L) 24.9 BUN (7 - 18 mg/dL) 12 Creatinine (0.55 - 1.02 mg/dL) 0.87 Glomerular Filtr Rate (>60) 64.0 Glucose (74 - 106 mg/dL) 130 H Calcium (8.5 - 10.1 mg/dL) 8.9 Hematology Hgb (12 - 16 g/dL) 10.7 L Hct (37 - 47 %) 32.4 L Chandler Knutson M.D. at 1117 RPT #:[id number] OF REPORT CLClinical oudq0602-21-20Y58:01:00Y.[id number] able for patient xcocVTHEUDHYAFFEUD0750-37-23J29:17:55 [facility] 2023-10-01 08:36:00 [id number]+9Uw w/6ks1RF7MOMl2xnINMJlYx8VRzfj Dg6Cc7NSfclN3YLWp/0tAl4Scza7294-19-73A43:36:[address] [facility] ([facility])Discharge SummaryREPORT#:[id number] REPORT STATUS: SignedREPORT INITIALIZATION DATE:10/01/23 TIME: 835 PATIENT: UZAIR ALFRED UNIT #: [id number]#: [id number] ROOM[facility]BED: [facility]-ADOB: [birth year] AGE: 88 SEX: F ATTEND: Andrzej Darby AUTHOR: Brie Zhang PAREPT SERVICE DT/TIME: 10/01/23835* ALL edits or amendments must be made on the electronic/computer document * General InformationDate of admission:Observation Start Date: 09/30/23Date of admission: 09/30/23 Discharge date: 10/01/23Admission diagnosis:Left knee osteoarthritisDischarge diagnosis:sameHospital course:The patient underwent the procedure without incident. Findings were significantfor degenerative disease of the knee. The patient was hemodynamically and medically monitored during the post op period. Anticoagulation was instituted for post op DVT prophylaxis. The patient was progressively able to tolerate PO pain medications and the appropriate diet. PT was instituted, with a progressive ability to ambulate and performed exercises. The patient was eventually deemed stable and safe for discharge. Despite factors which projected a longer hospital stay, the patient fulfilled criteria for earlier than expected discharge, including control of pain, early mobilization with PT and stable hemodynamic status. At discharge the patient was comfortable with a controlled pain level. There were no chest or abdominal symptoms present. Discharge physical exam demonstrated stable vitals and no acute distress. The patient had an intact dressing with no significant drainage and no calf tenderness. There were no neurologic or vascular deficits or changes from the preop states. We discussed that postoperative management to optimize health is in the best interest of not only the patient s surgical recovery but their overall health. Weight optimization through appropriate nutrition and exercise was encouraged.Consultants: internal medicinePt. condition on discharge: stableAllergies:Allergies:No Known Allergies (Coded, 09/30/23) Med Rec Med RecDischarge meds:Continue taking these medications:PANTOPRAZOLE DR (PROTONIX) 40 MG TAB.DR 40 MILLIGRAM ORAL DAILY. CYANOCOBALAMIN (VITAMIN B-12) 1,000 MCG TAB 1,000 MICROGRAM ORAL DAILY. [APPLE CIDER VINEGAR] 1 TABLET ORAL DAILY. Treatments ProceduresTreatments Procedures:Procedure: Left total knee arthroplastyLab:Chemistry last 24 hrs: 10/01 440 Chemistry Sodium (136 - 145 mmol/L) 138 Potassium (3.5 - 5.1 mmol/L) 4.8 Chloride (98 - 107 mmol/L) 102.0 BUN (7 - 18 mg/dL) 12 Creatinine (0.55 - 1.02 mg/dL) 0.87 Glucose (74 - 106 mg/dL) 130 H Hematology last 24 hrs: 10/01 440 Hematology Hgb (12 - 16 g/dL) 10.7 L Hct (37 - 47 %) 32.4 L Discharge Instructions PCP)( Discharge to: Home/Self Care Discharge InstructionsAdditional Discharge Routines: Attending Follow-Up, Wound/Dressing Care)( Diet: Resume Home Diet/Feeds)( Weight monitoring: Not Required)( Activity: As Tolerated)( Wound/dressing care: Do not submerge incision, Leave dressing in place, OK toshower tomorrowPrescriptions: e-prescribeRx drug database reviewed: yes Follow-up AppointmentsAttending Physician: Attending Physician: Andrzej Darby MD Attending physician follow up timeframe: In 2-3 weeks Special instructions:CALL TO MAKE APPOINTMENT at 0837 at 1703 [facility] #:[id number] OF REPORT DSDischarge jgkuyry5530-27-63O67:36:00Y.DLVC26019693-6199SNFj ailable for patient mambENPJQZRIMKSLGY0217-59-06D78:38:20 [facility] 2023-09-30 17:33:00 [id number] 6cdmKjR0dp8W5V+nSV0tVEQEuaPwj 6zE8kJFdr5oltkNzULZ+wAVanWH0725-32-01P76:33:00 [facility] ([facility])Clinical NoteREPORT#:[id number] REPORT STATUS: SignedREPORT INITIALIZATION DATE:09/30/23 TIME: 1732 PATIENT: UZAIR ALFRED UNIT #: [id number]#: [id number] [facility] [birth year][facility][birth year] AGE: 88 SEX: F ATTEND: Andrzej Darby MDADM AUTHOR: Chandler De Guzman MDREPT SERVICE DT/TIME: 09/30/231732* ALL edits or amendments must be made on the electronic/computer document * See AddendumClinical NoteNote:[facility] Chandler Knutson MD(cell text [phone])Internal Medicine Consult at request of : Dr. Andrzej Darby Chief Complaint: left knee pain HPI: 88 yo F is now s/p Left Total knee Arthroplasty (TKA) by Dr. Darby. Ms. Alfred relates years of progressive left knee pain (recently severe, 06/12), worse with activity, and with restricted motion at times in quality. She has failed conservative management.Comorbidities: see below. PmHx: .OsteoArthritis, GERD ALLERGY: Allergies:No Known Allergies (Coded, 09/30/23) Home Medications: Home Medications:PANTOPRAZOLE DR (PROTONIX) 40 MG PO DAILY CYANOCOBALAMIN (VITAMIN B-12) 1,000 MCG PO DAILY [APPLE CIDER VINEGAR] 1 TAB PO DAILY SgHx: .Cholecystectomy, cataract surgery SHx: Tob: none FHx: .No significant hx of DVT/PE.Alcohol: none Drugs: none Lives: with others ..Vitals:Vital Signs: Date Time Temp Pulse Resp B/P B/P Pulse O2 O2 Flow FiO2 Mean Ox Delivery Rate 09/30 1623 97 Room air 09/30 1518 97.2 85 14 124/63 0.0 99 Nasal cannula 09/30 1445 97.2 83 14 126/55 78.5 93 Nasal cannula 09/30 1415 86 24 145/58 98 Nasal 3 cannula 09/30 1400 85 16 139/58 100 Nasal 3 cannula 09/30 1352 Nasal 3 cannula 09/30 1348 Simple 6 mask 09/30 1345 81 12 135/63 100 Nasal 3 cannula 09/30 1330 77 21 207/97 100 Nasal 3 cannula 09/30 1315 84 14 196/82 100 Nasal 3 cannula 09/30 1304 97.2 93 19 207/96 100 Simple 6 mask 09/30 0858 97.5 83 18 201/90 96 Room air Gen: Alert, in mild discomfort.EYE: Nl lids conjunctiva.ENT: Nl ears Nose, nl lips,. Neck: Supple, nl thyroid, No masses.CV: Regular Rate Rhythm, no heave or significant murmur. Edema- none RESP: Clear to Auscultation, normal Respiratory effort.ABD: Soft, NonDistended,.LYM: No significant cervical Lymphadenopathy.MS: No sign of compartment syndrome, Knee is wrapped, drain in place.NEURO: Nonfocal, grossly normal sensation of LE, +Ankle DF/PF..Preop Labs(09/11/23): CBC:. Hgb 13.6 Plt 335 , CHEM: Na 139, K 4.5, Cr 0.85 (eGFR66 %), . Ekg: Normal Sinus rhythm .(medium to high risk of complications or morbidity) (major surgery) (IV sedative, meds).Assessment Plan1.) Anemia of Acute Blood Loss- .will recheck tomorrow. 2.) S/p Left Total Knee Arthroplasty .acute multi-modal pain control and followup. Anticoagulation as per Dr. Darby.3.) OsteoArthritis Gerd- .continue on Rx.. Chandler Knutson M.D. Thanks!..... G9903 - Patient screened for tobacco use AND identified as a tobacco non-aoxw6722S - ACP discussion - default code status while at [facility]. G8420 BMI is documented as within normal parameters (18-25). at 2146 Addendum 1: 10/01/23 1033 by Chandler De Guzman MD PLEASE note - patient had foot drop on the left (operative) side when I saw her 09/30/23, she had good pulse and normal skin tone. at 1034 Addendum 2: 10/01/23 1116 by Chandler De Guzman MD ERROR - patient does NOT have foot drop - the above addendum 1 note was placed on the wrong chart. at 1117 RPT #:[id number] OF REPORT CLClinical vniq0778-02-88S47:33:00Y.ZFLG91812967-2221XPLvkug able for patient vlffGCIPTYILSXEZLF7384-85-16L06:46:47 [facility] 2023-09-30 14:59:00 [id number] xeMiAbBbLuqI+3K8OXZOab+wi/aEa 80f/azl1QegnBZuEkuMTGk+BXa22501-23-30S97:59:92172 8-0064 [facility] [place] [address] PATIENT NAME: UZAIR ALFRED ADMIT DATE: 09/30/23ACCOUNT NO: [id number] ROOM NO: [facility] AGE: 88 REPORT TYPE: OPERATIVE REPORT SEX: F ADMITTING PHYSICIAN:Andrzej Darby MD ATTENDING PHYSICIAN:Andrzej Darby MD OPERATION DATE: 09/30/2023 PREOPERATIVE DIAGNOSIS: Left knee osteoarthritis. POSTOPERATIVE DIAGNOSIS: Left knee osteoarthritis, M17.12. OPERATIVE PROCEDURES PERFORMED:1. Computer-assisted imageless left total knee arthroplasty, 40483.2. 83921. IMPLANTS UTILIZED: DePuy Sigma total knee system, size 2.5 left posterior stabilized femur, size 2.5 fixed bearing tibial tray, 2.5 x 8 mm fixed bearing tibial insert, 38 mm oval patella, all components cemented. ANESTHESIA: General. TOURNIQUET TIME: 90 minutes. ESTIMATED BLOOD LOSS: Less than 20 mL. SURGEON: Andrzej Darby M.D. SUPERVISING FLOORPERSON: MAXWELL Zhang. OPERATIVE FINDINGS: As above. SURGICAL SPECIMENS SENT: None. CLINICAL INDICATIONS: Ms. Alfred is an 88-year-old female from [place], [place], who has been having progressive and severe pain involving her left knee for the past 15 years. Her pain is occurring on a daily basis for the past 10 years. The pain has been refractory to extensive nonoperative intervention. Due to herprogressive disability and lack of response to nonoperative treatment, she is admitted for computer-assisted imageless left total knee arthroplasty. OPERATIVE NARRATIVE:1. COMPUTER-ASSISTED IMAGELESS LEFT TOTAL KNEE ARTHROPLASTY, 03750.2. 85121. DESCRIPTION OF PROCEDURE: Ms. Alfred was brought to the operative suite, at which time she was placed in supine position on the OR table. Routine monitors were established. General anesthesia was delivered. After satisfactory PATIENT NAME: UZAIR ALFRED induction of general anesthesia, a tourniquet was applied to the patient's left lower extremity per Ms. Zhang and the leg was circumferentially prepped and draped in usual sterile fashion per Ms. Zhang. Leg was then elevated, exsanguinated, tourniquet was insufflated to 300 mmHg. The knee was flexed to 100 degrees. Anterior midline incision was performed. Medial parapatellar arthrotomy was performed. Patella was everted laterally. Severe grade IV changes noted in all three compartments. Hypertrophic osteophytes were resected. Ligament balancing was achieved. Medial and lateral menisci were excised. Anterior and posterior cruciate ligaments were resected. At this time, a centramedullary pin was placed in the anatomic center of the distal femur and the OrthAlign guide was placed and the knee was registered. The guidewas then pinned in 0 degrees of varus-valgus angulation along with 3 degrees of flexion. The distal 10 mm of the femur was then resected. The guide was removed, the distal femur appropriately sized and a size 2.5 cutting block was used to create the anterior, followed by posterior, followed by chamfer cuts. The distal femur was appropriately sized and a size 2.5 cutting block was used to create the anterior, followed by posterior, followed by chamfer cuts. The appropriate osteotomy guide was then placed across distal femur and the femoral notch was resected. The proximal tibia was then translated anteriorly. Utilizing extramedullary instrumentation, the proximal tibia was resected perpendicular to its mechanical axis resecting 10 mm from the non-affected lateral tibial plateau. The proximal tibia was appropriately sized and a 2.5 baseplate was noted to provide optimal coverage. Proximal tibia was appropriately prepped. The patella was then resected, so as to ensure mormon of its normal height with prosthesis in place. Flexion as well as extension gaps were checked and noted to be equal. Trial components were placed into the joint. Optimal stability was noted with an 8 mminsert. A 0 degrees of gravity extension with 135 degrees of gravity flexion were present. Patellofemoral tracking was within normal limits. There was no varus or valgus instability noted. The knee was stable in both flexion as well as extension. Trial components were removed. Bony surfaces were prepared for cement implantation utilizing pulsatile lavage irrigation. Medium Hemovac drainwas then placed deep to the extensor mechanism and the knee was placed into 70 degrees of flexion. Arthrotomy closed in watertight fashion, 2.0 Quill suture. Skin closure with interrupted 0 Vicryl, followed by 2-0 Vicryl, followed by Ethicon Prineo mesh as per Emilio Charlieluiz. Intraarticular anesthetic injection was performed by Emilio Zhang. Sterile dressing was applied by Ms. Zhang. Ms. Alfred was then extubated and taken to recovery room awake and alert without anyanesthetic or operative complications. At the end of the case, sponge and needle counts were correct x2. During the procedure, Ms. Zhang was invaluable in positioning the patient alongwith preparation and draping of the extremity. She was also vital in providing surgical exposure throughout the procedure in addition to closure of the postoperative incisions, intraarticular anesthetic injection, and application ofpostoperative dressing. Utilizing the OrthAlign guidance system can reduce intraoperative and postoperative blood loss due to lack of creation of an intramedullary tunnel in the distal femur. Also, several studies have shown that the accuracy of the distal femoral resection is greatly enhanced over standard intramedullary instrumentation. PATIENT NAME: UZAIR ALFRED Dictated By: Andrzej Darby MD Date Dictated: 09/30/2023 14:59:47Date Transcribed: 09/30/2023 16:56:59RENOCH/Tom #: [id number] ID: [id number] by Andrzej Darby MD On 10/01/2023 07:13:27 AM at 0713 PATIENT NAME: UZAIR ALFRED [id number]:56:00Y.[id number] lable for patient gckrULSNBSREPOAYJY8596-50-60A19:14:05 [facility] 2023-09-30 06:33:00 [id number]Wmci i+p4OH4vRLSZCGuOLni0wx60+qK9295-33-35N11:33:[address] [facility] ([facility])Brief Op NoteREPORT#:[id number] REPORT STATUS: SignedREPORT INITIALIZATION DATE:09/30/23 TIME: 632 PATIENT: UZAIR ALFRED UNIT #: [id number]#: [id number] ROOM/BED: [place] [id number]: [birth year] AGE: 88 SEX: F ATTEND: Andrzej Darby AUTHOR: Brie Zhang PAREPT SERVICE DT/TIME: 09/30/2333* ALL edits or amendments must be made on the electronic/computer document * Op/Inv Proc Note - BriefPre-procedure diagnosis:Left knee osteoarthritisPost-procedure diagnosis: same as pre procedure dxProcedures performed:Left total knee arthroplastyPrimary Surgeon:JaseAssistant(s): Vicente ARREOLA-CFindings:as aboveComplications: noneEstimated blood loss in ml's: 25ccSpecimens removed/altered: none at 0634 at 0921 RPT #:[id number] OF REPORT OPOperative [id number]:33:00Y.[id number] ilable for patient hnavGFLZWCKMAZLRGL9273-15-38Y85:34:50 [facility] 15:04:00 [id number] [id number] EdD3TioWgXMmJCSAsk5rCykHmJ68890-35-81L16:04:53599 0-0067 [facility] [place] [id number] PATIENT NAME: UZAIR ALFRED ADMIT DATE: ACCOUNT NO: [id number] ROOM NO: AGE: 88 REPORT TYPE: HISTORY AND PHYSICAL SEX: F ADMITTING PHYSICIAN: ATTENDING PHYSICIAN:Andrzej Darby MD ADMISSION DATE: 09/30/2023 10:45:00 ADMITTING DIAGNOSIS: Left knee osteoarthritis, M17.12. HISTORY OF PRESENT ILLNESS: Ms. Alfred is a very pleasant 88-year-old female who has been having chronic pain in her left knee for the past 15 years. The pain has become quite severe over the past 2 years. The pain has become quite disabling over the past several months. She is having pain on a daily basis. The pain affects her daily activities. Her pain is not abated despite extensivenonoperative treatment. Due to her severe disability and lack of response to nonoperative intervention, she is admitted for left total knee arthroplasty. PAST MEDICAL HISTORY: Anxiety, arthritis, and reflux. SURGERIES: Include eye surgery as well as a cholecystectomy. FAMILY HISTORY: Carcinoma, cerebrovascular disease. SOCIAL HISTORY: She does not smoke nor does she drink. ALLERGIES: NO ALLERGIES ARE LISTED. MEDICATIONS: Lorazepam, pantoprazole. REVIEW OF SYSTEMS: Negative. PHYSICAL EXAMINATION:VITAL SIGNS: Physical evaluation revealed her to be 5 feet 2 inches tall. She weighs 59.8 kg.HEENT: Within normal limits.CARDIAC: Regular rate and rhythm. No murmur.CHEST: Clear.ABDOMEN: Benign.BACK: No CVA tenderness.EXTREMITIES: Leg lengths are equal. Full painless motion of both hips. Examination of the left knee reveals a varus deformity. She has an antalgic gait. She has painful passive motion. Positive effusion. She has 5 to 110 degrees of motion. There is no instability. Her distal neurovascular status isintact. RADIOGRAPHIC EVALUATION: Reveals varus alignment with severe osteoarthritis. PATIENT NAME: UZAIR ALFRED ASSESSMENT: Left knee pain secondary to severe osteoarthropathy. SURGICAL PLAN: Computer-assisted imageless left total knee arthroplasty. I have gone over at length with the patient the associated risks involved with this procedure. She understands these risks include, but are not limited to bleeding, infection, neurovascular damage, leg length inequality, loosening of the prosthesis requiring possible revision, painful scar, persistent limp, deep vein thrombi leading to pulmonary emboli along with complications secondary to anesthesia. She understands that she will receive a fixed bearing posterior cruciate sacrificing total knee arthroplasty. She accepts these risks and givesher informed consent to proceed. Dictated By: Andrzej Darby MD Date Dictated: 09/22/2023 15:04:57Date Transcribed: 09/22/2023 16:02:05REONCH/JEFF/Sandee #: [id number] ID: [id number] by Andrzej Darby MD On 09/23/2023 08:06:13 AM at 0806 PATIENT NAME: UZAIR ALFRED and physical scsbcogpwri5248-45-17P37:02:00Y.[id number] VAvailable for patient yznfSDQWTFTTDICZZN8594-62-63E59:06:57 [facility]
[2024-04-29 11:13] LABS: Absolute Basophils 0.1 K/uL (0-0.5); Absolute Eosinophils 0.2 K/uL (0-0.5); Absolute Monocytes 0.6 K/uL (0.1-1.3); Absolute Neutrophil 6.6 K/uL (1.8-8.0); Basophils % 0.6 % (0-1.3); Hematocrit 32.9 % (36.0-45.0); Hemoglobin 10.9 g/dL (12.0-15.0); Lymphocytes % 11.9 % (15.3-44.8); MCH 30.3 pg (27.0-35.0); MCHC 33.1 g/dL (32.0-36.0); MCV 91.7 fL (80-100); MPV 7.2 fL (7.6-11.3); Neutrophils % 78.5 % (41.7-73.7); Nucleated Red Blood Cells % 0.1 % (0-0); Platelets 440 thou/uL (152-406); RBC Red Blood Cell Count 3.58 M/uL (3.86-4.86); Red Cell Distribution Width 16.5 % (12.1-15.2)
[2024-04-29 11:28] LABS: Albumin 3.1 g/dL (3.4-5.0); Albumin/Globulin Ratio 0.8 (1.1-1.8); Alkaline Phosphatase 128 U/L (45-117); Anion Gap 8.3 mEq/L (5.0-15.0); BUN Blood Urea Nitrogen 17 mg/dL (7-18); Bicarbonate 28 mEq/L (21-32); Bilirubin Total 0.4 mg/dL (0.2-1.0); Globulin 3.7 g/dL (2.3-3.5); Glomerular Filtration Rate 81 ml/min (=/>90); Glucose Level 116 mg/dL (74-106); Lipase 19 U/L (13-75); Potassium 4.3 mEq/L (3.5-5.1); Protein, Total 6.8 g/dL (6.4-8.2); Sodium Level 138 mEq/L (136-145)
[2024-04-29 11:34] LABS: ALT/SGPT < 14 U/L (13-56); AST/SGOT < 10 U/L (15-37)
--- NOTE | 2024-04-29 14:48 | ER ---
Nurse's Notes [facility] Name: Ester Alfred Age: 89 yrs Sex: Female : 1935 Arrival Date: 04/29/2024 Time: 10:00 Bed 7 Private MD: Diagnosis: Other hemorrhoids Presentation: 04/29 10:17 Chief complaint: Patient states: diarrhea that began Friday. Denies abd pain, denies aa5 vomiting. Pt states "I had knee sx 3 weeks ago and I've been taking Imodium and Pepto-Bismol but it's not helping". Coronavirus screen: diarrhea. Ebola Screen: Patient denies travel to an Ebola-affected area in the 21 days before illness onset. Initial Sepsis Screen: Does the patient meet any 2 criteria? HR > 90 bpm. Does the patient have a suspected source of infection? No. Patient's initial sepsis screen is negative. Risk Assessment: Do you want to hurt yourself or someone else? Patient reports no desire to harm self or others. Onset of symptoms was April 2024. 10:17 Acuity: PACO 3 aa5 10:17 Method Of Arrival: Ambulatory aa5 Historical: - Allergies: 10:19 No Known Allergies; aa5 - PMHx: 10:20 None; aa5 - PSHx: 10:19 Right knee sx; Cholecystectomy; aa5 - Immunization history:: Adult Immunizations unknown. - Infectious Disease History:: Denies. - Social history:: Smoking status: Patient denies any tobacco usage or history of. Assessment: 10:45 Reassessment: PT CLEANED OF DIARRHEA. db 10:50 Reassessment: Patient appears in no apparent distress at this time. Patient and/or db family updated on plan of care and expected duration. Pain level reassessed. Patient is alert, oriented x 3, equal unlabored respirations, skin warm/dry/pink. General: Appears in no apparent distress. comfortable, Behavior is calm, cooperative. Pain: Complains of pain in RECTAL. Neuro: Level of Consciousness is awake, alert, obeys commands, Oriented to person, place, time, situation, Speech is normal, Facial symmetry appears normal. Respiratory: Airway is patent Respiratory effort is even, unlabored, Respiratory pattern is regular, symmetrical. GI: Abdomen is flat, non-distended, Reports diarrhea. 11:15 Reassessment: PT CLEANED OF DIARRHEA. db Vital Signs: 10:17 BP 150 / 69; Pulse 92; Resp 20 S; Temp 98.8(O); Pulse Ox 96% on R/A; Weight 58.97 kg aa5 (R); Height 5 ft. 1 in. (R); 10:17 Body Mass Index 24.56 (58.97 kg, 154.94 cm) aa5 ED Course: 10:06 Patient arrived in ED. mg5 10:17 Mimi Davis MD is Attending Physician. gb1 10:17 Arm band placed on. aa5 10:19 Triage completed. aa5 10:35 Clarissa Key, RN is Primary Nurse. db 10:50 Inserted saline lock: 22 gauge in right antecubital area, using aseptic technique. db Blood collected. 11:17 Patient has correct armband on for positive identification. Placed in gown. Bed in low db position. Call light in reach. Side rails up X 1. Client placed on continuous cardiac and pulse oximetry monitoring. NIBP monitoring applied. brake engineer on. Pulse ox on. NIBP on. Warm blanket given. Pillow given. Administered Medications: No medications were administered Outcome: 14:48 Discharge ordered by . gb1 15:27 Patient left the ED. aa5 Signatures: Felicitas Cho RN RN [facility] Clarissa Key, RN RN Nikky Coronel [facility] Mimi Davis MD MD gb1
--- NOTE | 2024-04-29 14:49 | EDPHYS ---
Physician Documentation [facility] Name: Ester Alfred Age: 89 yrs Sex: Female : 1935 Arrival Date: 04/29/2024 Time: 10:00 Bed 7 Private MD: ED Physician Mimi Davis HPI: 04/29 14:58 This 89 yrs old Female presents to ER via Ambulatory with complaints of gb1 Diarrhea. Historical: - Allergies: 10:19 No Known Allergies; aa5 - PMHx: 10:20 None; aa5 - PSHx: 10:19 Right knee sx; Cholecystectomy; aa5 - Immunization history:: Adult Immunizations unknown. - Infectious Disease History:: Denies. - Social history:: Smoking status: Patient denies any tobacco usage or history of. Exam: 14:58 Constitutional: This is a well developed, well nourished patient who is awake, alert, gb1 and in no acute distress. Head/Face: Normocephalic, atraumatic. Eyes: Pupils equal round and reactive to light, extra-ocular motions intact. Lids and lashes normal. Conjunctiva and sclera are non-icteric and not injected. Cornea within normal limits. Periorbital areas with no swelling, redness, or edema. ENT: Nares patent. No nasal discharge, no septal abnormalities noted. Tympanic membranes are normal and external auditory canals are clear. Oropharynx with no redness, swelling, or masses, exudates, or evidence of obstruction, uvula midline. Mucous membranes moist. Neck: Trachea midline, no thyromegaly or masses palpated, and no cervical lymphadenopathy. Supple, full range of motion without nuchal rigidity, or vertebral point tenderness. No Meningismus. Chest/axilla: Normal chest wall appearance and motion. Nontender with no deformity. No lesions are appreciated. Cardiovascular: Regular rate and rhythm with a normal S1 and S2. No gallops, murmurs, or rubs. Normal PMI, no JVD. No pulse deficits. Respiratory: Lungs have equal breath sounds bilaterally, clear to auscultation and percussion. No rales, rhonchi or wheezes noted. No increased work of breathing, no retractions or nasal flaring. Abdomen/GI: Soft, non-tender, with normal bowel sounds. No distension or tympany. No guarding or rebound. No evidence of tenderness throughout. Back: No spinal tenderness. No costovertebral tenderness. Full range of motion. Skin: Warm, dry with normal turgor. Normal color with no rashes, no lesions, and no evidence of cellulitis. MS/ Extremity: Pulses equal, no cyanosis. Neurovascular intact. Full, normal range of motion. Vital Signs: 10:17 BP 150 / 69; Pulse 92; Resp 20 S; Temp 98.8(O); Pulse Ox 96% on R/A; Weight 58.97 kg aa5 (R); Height 5 ft. 1 in. (R); 10:17 Body Mass Index 24.56 (58.97 kg, 154.94 cm) aa5 MDM: 10:54 Patient medically screened. 1 14:58 Differential diagnosis: Nonspecific abd pain, gastritis, diverticulitis, viral gb1 gastroenteritis, gastroenteritis. Data reviewed: vital signs, nurses notes, lab test result(s). ED course: 89-year-old female status post a right knee replacement 3 weeks ago here with report of frequent loose stools. Patient denies any bright red blood per rectum and she denies any fevers. She has been on doxycycline postop. The nurse reports to me that the patient has had some soft stool but no sara diarrhea. Patient has been taking Imodium and Pepto-Bismol for these loose stools. I recommend that she stop those medications as well to doxycycline and follow-up routinely with her primary care doctor. I doubt small bowel obstruction, acute diverticulitis, the patient's creatinine is normal I doubt dehydration at this time. This is more of an issue of her for home care as the patient has limited mobility secondary to her recent right knee surgery to get up and down to the restroom. She has been stable here and she does have some external hemorrhoids which do not appear thrombosed for which I recommended Tucks pad and I will recommend that she follow-up with her primary care as discussed.. 04/29 10:17 Order name: CBC with Diff; Complete Time: 13: gb1 04/29 10:17 Order name: CMP; Complete Time: 13: gb1 04/29 10:17 Order name: Lipase; Complete Time: 13: gb1 04/29 10:17 Order name: Urinalysis w/ reflexes gb1 04/29 10:17 Order name: IV Saline Lock; Complete Time: 11:15 gb1 04/29 10:17 Order name: Labs collected and sent; Complete Time: 11:15 gb1 Administered Medications: No medications were administered Disposition Summary: 04/29/24 14:48 Discharge Ordered Notes: Location: Home gb1 Condition: Stable gb1 Diagnosis - Other hemorrhoids gb1 Followup: gb1 - With: Private Physician - When: 48 Hours - Reason: Re-evaluation by your physician Discharge Instructions: - Discharge Summary Sheet gb1 - Hemorrhoids gb1 Forms: - Medication Reconciliation Form gb1 - Antibiotic Education gb1 - Prescription Opioid Use gb1 - Patient Portal Instructions gb1 - Leadership Thank You Letter gb1 Prescriptions: - Tucks (witch maribell) 50 % Topical pads, medicated - administer 1 pad TOPICAL route 2 times per day; 10 pad; Refills: 0, Product gb1 Selection Permitted Signatures: Dispatcher [employer] EDFelicitas Ortiz RN RN aa5 Mimi Davis MD MD gb1 Corrections: (The following items were deleted from the chart) 10:18 10:17 CBC+H.LAB.BRZ ordered. EDMS EDMS 10:18 10:17 COMPREHENSIVE METABOLIC PANEL+C.LAB.BRZ ordered. EDMS EDMS 10:18 10:17 LIPASE+C.LAB.BRZ ordered. EDMS EDMS 10:18 10:17 Urinalysis+U.LAB.BRZ ordered. EDMS EDMS
[2024-04-29 15:07] LABS: Specific Gravity 1.007 (1.005-1.030); Urine Bilirubin NEGATIVE (Negative); Urine Blood Negative (Negative); Urine Clarity Clear (Clear); Urine Color Light-Yellow (Yellow); Urine Glucose NEGATIVE (Negative); Urine Ketones NEGATIVE (Negative); Urine Microscopic Reflex YN NO UMIC; Urine Nitrite NEGATIVE (Negative); Urine Protein NEGATIVE (Negative); Urine Urobilinogen Normal (Normal)
[2024-04-29 15:47] VITALS: BP 150/69; TEMP 98.8; O2SAT 96
== END 2024-04-29 15:27 | disposition home or self-care (01) ==
LOC: ER 10:00
DX: K64.8 Other hemorrhoids (principal); R19.7 Diarrhea, unspecified
CPT/HCPCS: 36415; 80053; 81003; 83690; 85025; 99284